=== PATIENT | male | born 1955 | race Two or more races ===

== ENCOUNTER 2023-02-13 18:47 | Emergency (ER) | payer OTHER ==
[~2023-02-13] VITALS: Ht 182.9 cm; Wt 100.0 kg
[2023-02-14] MEDS ORDERED: SODIUM CHLORIDE 0.9% 1,000 ML IV ONE ×2 (00:15→02:30)
[2023-02-14 01:54] LABS: Hematocrit 45.2 % (41.0-53.0); Hemoglobin 14.9 g/dL (13.5-17.5); Mean Corpuscular Hemoglobin 31.4 pg (28.0-32.0); Mean Corpuscular Volume 95.1 fL (80.0-100.0); Red Blood Cells 4.75 10^6/uL (4.5-5.90); Red Cell Distribution Width 17.1 % (11.8-14.3)
[2023-02-14 01:59] LABS: Alanine Aminotransferase 80 U/L (7-40); Albumin 3.7 g/dL (3.2-4.8); Alkaline Phosphatase 160 U/L (46-116); Anion Gap 20 (5-15); Aspartate Aminotransferase 177 U/L (13-40); BUN/Creatinine Ratio 15.6 (10.0-20.0); Bilirubin, Total 0.4 mg/dL (0.2-1.0); Blood Urea Nitrogen 69 mg/dL (9-23); Calcium 8.3 mg/dL (8.7-10.4); Carbon Dioxide 12 mmol/L (20-30); Chloride 102 mmol/L (98-107); Glucose 82 mg/dL (74-106); Magnesium 3.1 mg/dL (1.6-2.6); Potassium 3.7 mmol/L (3.5-5.1); Sodium 134 mmol/L (136-145); Total Protein 7.7 g/dL (5.7-8.2)
[2023-02-14 02:03] LABS: Basophils % (manual) 0 (0.0-2.0); Blast Cells 0; Eosinophils % (manual) 0 (0-7); Metamyelocytes % 0; Promyelocytes % 0; Reactive Lymphocytes 0
[2023-02-14 02:12] LABS: INR 1.12 (0.9-1.15); Prothrombin Time 11.9 sec (9.3-11.8)
[2023-02-14 02:14] LABS: Lactic Acid w/Reflex 3.1 mmol/L (0.4-2.0)
[2023-02-14 02:22] LABS: Partial Thromboplastin Time 32.8 SEC (24.5-34.5)
[2023-02-14] MEDS ORDERED: VANCOMYCIN 1GM/200ML 200 ML IV ONE (02:30)
[2023-02-14] MEDS ORDERED: cefTRIAXone 1GM/50ML D5W 50 ML IV ONE (02:30)
[2023-02-14 03:39] LABS: Band Neutrophils % (manual) 13; Giant Platelets Few; Large Platelets FEW; Lymphocytes % (manual) 10 (10.0-50.0); Monocytes % (manual) 4 (0-12); Myelocytes % 1; Platelet Estimate Decreased
[2023-02-14 06:00] VITALS: PULSE 103; RESP 22; O2SAT 97
[2023-02-14 06:55] LABS: Urine Bacteria FEW /hpf (None Seen); Urine Blood 2+ /uL (Negative); Urine Clarity HAZY (Clear); Urine Color Yellow (Yellow); Urine Hyaline Cast FEW /lpf (0 - 2); Urine Protein, UAD 2+ (Negative); Urine Specific Gravity 1.013 (1.001-1.035); Urine Urobilinogen Normal (Negative); Urine WBC 7 /hpf (0 - 3); Urine pH 5.5 (5.0-8.0)
[2023-02-14 07:40] VITALS: PULSE 106; RESP 18; O2SAT 95
[2023-02-14 07:41] VITALS: TEMP 97.6; O2SAT 95
[2023-02-14 08:00] LABS: COVID19 ANTIGEN SOFIA FIA NEGATIVE (NEGATIVE)
[2023-02-14] MEDS ORDERED: ONDANSETRON HCL 4 MG/2 ML VIAL IV ONE (08:00)
[2023-02-14] MEDS ORDERED: MORPHINE SULFATE 4 MG/ML SYR/VIAL IV ONE (08:00)
[2023-02-14 08:15] VITALS: BP 137/83; PULSE 108; RESP 19
== END 2023-02-14 08:46 | disposition short-term general hospital (02) ==
LOC: ER 18:47
DX: I12.9 Hypertensive chronic kidney disease with stage 1 through stage 4 chronic kidney disease, or unspecified chronic kidney disease (principal); N18.9 Chronic kidney disease, unspecified; N17.9 Acute kidney failure, unspecified; R74.02 Elevation of levels of lactic acid dehydrogenase [LDH]; R53.1 Weakness; F15.90 Other stimulant use, unspecified, uncomplicated; R51.9 Headache, unspecified; Z98.890 Other specified postprocedural states; Z20.822 Contact with and (suspected) exposure to COVID-19
CPT/HCPCS: 36415; 70450; 71045; 80053; 81001; 83605; 83735; 83880; 84484; 85007; 85027; 85610; 85730; 87040; 87426; 93005; 96361; 96365; 96367; 96375; 99291; J0696; J2270; J2405; J3370; J7030; 87077; 87186